=== PATIENT | male | born 1990 | race Caucasian/White ===

== ENCOUNTER 2022-01-02 12:19 | Outpatient (CLI) | payer OTHER, SELFPAY ==
--- NOTE | 2022-01-02 12:36 | XR_ITS ---
WS: [id number] Right foot, 2 views, 01/02/2022 Clinical Data: TORIBIO PLANTAR FASCITIS Comparison: None. Findings: No fractures or dislocations are seen. No bone destruction or erosion is noted. The joint spaces and soft tissues are normal. XR/XR foot RT 2V [id number] Impression: Negative right foot.
--- NOTE | 2022-01-02 12:37 | XR_ITS ---
WS: [id number] Left foot, 2 views, 01/02/2022 Clinical Data: BILATERAL PLANTAR FASCITIS Comparison: None. Findings: No fractures or dislocations are seen. No bone destruction or erosion is noted. The joint spaces and soft tissues are normal. XR/XR foot LT 2V [id number] Impression: Negative left foot.
== END 2022-01-02 12:20 | disposition home or self-care (01) ==
LOC: RAD 12:24
PROVIDERS: PCP Nurse Practitioner Family; Visit Provider Chiropractor
DX: M72.2 Plantar fascial fibromatosis (principal)
CPT/HCPCS: 73620

== ENCOUNTER 2022-08-26 09:09 | Outpatient (CLI) | payer OTHER, SELFPAY | END 2022-08-26 09:10 | disposition home or self-care (01) | LOC: RT 09:13 | PROVIDERS: PCP Nurse Practitioner Family; Visit Provider Nurse Practitioner Family | DX: R05.3 Chronic cough (principal) | CPT/HCPCS: 94010; 94729 ==